=== PATIENT | female | born 2000 | race Asian ===

== ENCOUNTER 2022-10-27 14:19 | Emergency (ER) | payer OTHER ==
[~2022-10-27] VITALS: Ht 167.6 cm; Wt 68.0 kg
[2022-10-27] MEDS ORDERED: [UNRECOGNIZED DRUG - CODE] (14:29)
[2022-10-27 14:30] VITALS: BP 101/91; PULSE 74; RESP 18; TEMP 98.2; O2SAT 99
[2022-10-27] MEDS ORDERED: NACL 0.9% 1,000 ML IV ONE (14:30)
[2022-10-27 14:49] LABS: BASOPHILS % (AUTO) 0.3 % (0.0-2.0); EOSINOPHILS # (AUTO) 0.1 K/uL (0-0.4); EOSINOPHILS % (AUTO) 0.9 % (0.0-4.0); HEMATOCRIT 39.9 % (36-48); HEMOGLOBIN 13.3 g/dL (12.0-16.0); LYMPHOCYTES # (AUTO) 1.7 K/uL (2.5-16.5); LYMPHOCYTES % (AUTO) 19.4 % (20.5-51.1); MEAN CORPUSCULAR HEMOGLOBIN 30 pg (27-31); MEAN CORPUSCULAR HGB CONC 33 g/dL (33-37); MEAN CORPUSCULAR VOLUME 90.8 fL (80-94); MONOCYTES # (AUTO) 0.5 K/uL (0.8-1.0); MONOCYTES % (AUTO) 6.1 % (1.7-9.3); NEUTROPHILS # (AUTO) 6.5 K/uL (1.8-7.7); NEUTROPHILS % (AUTO) 73.3 % (42.2-75.2); PLATELET COUNT (AUTO) 361 K/uL (140-450); RED BLOOD CELL COUNT(AUTO) 4.39 MIL/uL (4.20-5.40); RED CELL DISTRIBUTION WIDTH 12.7 % (11.6-13.7); WHITE BLOOD COUNT (AUTO) 8.8 K/uL (4.5-11.0)
[2022-10-27 15:13] LABS: ALBUMIN 4.1 g/dL (3.4-5.0); ANION GAP 15.3 (8-16); CARBON DIOXIDE 24.8 mmol/L (21-32); MAGNESIUM 1.7 mg/dL (1.8-2.4); POTASSIUM 4.1 mmol/L (3.5-5.1); TOTAL BILIRUBIN 0.9 mg/dL (0.0-1.0)
[2022-10-27 15:26] LABS: ACETAMINOPHEN < 0.5 ug/ml (10-30); SALICYLATE < 2.8 mg/dL (2.8-20.0)
--- NOTE | 2022-10-27 15:55 | NUR ---
PATIENT PRESENTS TO ED WITH SIGN OF SUICIDE BY MEDICATION OVERDOSE. PT STATES SHES HAS HAD THOUGHTS OF SI FOR OVER A YEAR NOW. DENIES N/V/D; SKIN IS PINK/WARM/DRY; AAOX4 WITH EVEN AND STEADY GAIT; LUNGS CLEAR BL; HR EVEN AND REGULAR; PT DENIES ANY FEVER, CP, SOB, OR COUGH AT THIS TIME; PATIENT STATES PAIN OF 0/10 AT THIS TIME; VSS; PATIENT POSITIONED FOR COMFORT; HOB ELEVATED; BEDRAILS UP X2; BED DOWN. ER MD MADE AWARE OF PT STATUS. PMHX: DEPRESSION
--- NOTE | 2022-10-27 16:20 | NUR ---
Mother at bedside. Plan of care has been discussed with mother.
--- NOTE | 2022-10-27 16:30 | NUR ---
Posion control informed of pts status. Poison Control stated to draw labs, and hold pt for 6 hours. After 6 hours repeat lab draw and reassess.
--- NOTE | 2022-10-27 16:36 | NUR ---
Labs have been drawn pt has been placed on fluid replacement per providers orders pt was offered a meal and warm blankets. pt has been placed on the monitor.
[2022-10-27 17:29] VITALS: O2SAT 74
--- NOTE | 2022-10-27 18:00 | NUR ---
Per providers orders pt should be placed on a psych hold.
--- NOTE | 2022-10-27 18:18 | NUR ---
Pt in bed no signs of SI at this time noted. Pt is laying quiet in bed. Pt states she wants to speak with her mother. Mother brought in and at bedside with pt.
--- NOTE | 2022-10-27 18:53 | NUR ---
The patient's care was reviewed and supervised by NAHOMY ALICEA RN.
[2022-10-27 20:00] VITALS: O2SAT 74
[2022-10-27 20:59] LABS: MEAN CORPUSCULAR VOLUME 90.8 fL (80-94)
[2022-10-27 21:04] LABS: BASOPHILS % (AUTO) 0.4 % (0.0-2.0); EOSINOPHILS # (AUTO) 0.1 K/uL (0-0.4); EOSINOPHILS % (AUTO) 0.9 % (0.0-4.0); HEMATOCRIT 36.5 % (36-48); HEMOGLOBIN 12.3 g/dL (12.0-16.0); LYMPHOCYTES # (AUTO) 2.4 K/uL (2.5-16.5); MEAN CORPUSCULAR HEMOGLOBIN 31 pg (27-31); MEAN CORPUSCULAR HGB CONC 34 g/dL (33-37); MONOCYTES # (AUTO) 0.8 K/uL (0.8-1.0); MONOCYTES % (AUTO) 8.7 % (1.7-9.3); NEUTROPHILS # (AUTO) 5.9 K/uL (1.8-7.7); PLATELET COUNT (AUTO) 324 K/uL (140-450); RED BLOOD CELL COUNT(AUTO) 4.02 MIL/uL (4.20-5.40); RED CELL DISTRIBUTION WIDTH 12.7 % (11.6-13.7); WHITE BLOOD COUNT (AUTO) 9.2 K/uL (4.5-11.0)
--- NOTE | 2022-10-27 21:40 | NUR ---
Dr. Meyers examining patient.
[2022-10-27 22:17] LABS: ALBUMIN 4.2 g/dL (3.4-5.0); ANION GAP 15.8 (8-16); ASPARTATE AMINOTRANSFERASE 24 U/L (15-37); CARBON DIOXIDE 23.4 mmol/L (21-32); CHLORIDE 107 mmol/L (98-107); GFR ARICAN-AMERICAN 91 mL/min (>90); GLUCOSE 102 mg/dL (74-106); POTASSIUM 4.2 mmol/L (3.5-5.1); SODIUM SERUM 142 mmol/L (136-145); TOTAL BILIRUBIN 0.9 mg/dL (0.0-1.0); UREA NITROGEN, BLOOD 11 mg/dL (7-18)
--- NOTE | 2022-10-27 22:18 | NUR ---
Dr. Meyers speaking with pt and family
--- NOTE | 2022-10-27 22:20 | NUR ---
THIS NURSE AND DR. DUFF AT BEDSIDE TO DISCUSS TELEPYSCH RECOMMENDATIONS. AT THIS TIME MOTHER STATED " I DONT WANT MY DAUGHTER HERE, I CAN PROVIDE BETTER CARE FOR HER AT HOME WITH HER OWN DOCTOR WHO ACTUALLY KNOWS HER AND SHE HAS HER OWN THERAPIST AND THERAPIST FROM [facility]." "WHAT ARE MY RIGHTS? IF I NEED TO GET MY POUNDMASTER INVOLVED I WILL. MY DAUGHTER STAYING HERE IS COUNTER PRODUICTIVE." "MAY I SPEAK WITH WHOEVER IS IN CHARGE, WHO IS THE DIRECTOR. GET HIM OR HER ON THE PHONE NOW." CHARGE NURSE NOTIFIED.
--- NOTE | 2022-10-27 22:30 | NUR ---
TOSHIA JOHNSON CONTACTED FOR ASSISTANCE
[2022-10-27 22:34] LABS: SALICYLATE < 2.8 mg/dL (2.8-20.0)
--- NOTE | 2022-10-27 22:41 | NUR ---
TOSHIA JOHNSON ARRIVED. CHARGE NOTIFIED
--- NOTE | 2022-10-27 22:52 | NUR ---
THIS RN SPOKE AT LENGTHS WITH PT AND PT MOTHER DISCUSSING PLAN OF CARE AND OPTIONS, PT AGREEABLE TO VOLUNTARY CARE AND REQUESTING REEVALUATION IN THE MORNING. DR. DUFF MADE AWARE AND AGREEABLE.
[2022-10-27 23:30] VITALS: O2SAT 74
--- NOTE | 2022-10-28 00:13 | NUR ---
MOTHER CONTINUES TO BE BEDSIDE
[2022-10-28 02:45] VITALS: O2SAT 74
--- NOTE | 2022-10-28 03:15 | NUR ---
MOTHER CONTINUES TO BE AT BEDSIDE. AWAITING RECONSULT WITH TELEPYSCH
--- NOTE | 2022-10-28 07:17 | NUR ---
Pt report given to KAYLI DIAZ. Transfer of care at this time.
--- NOTE | 2022-10-28 07:20 | NUR ---
REPORT RECEIVED FROM SAMARA DIAZ. ASSUMED CARE AT THIS TIME
[2022-10-28 08:03] VITALS: TEMP 98.2
--- NOTE | 2022-10-28 08:06 | NUR ---
pt provided w/ breakfast. pt in view, awake and eating in bed. mom at bedside
[2022-10-28 08:30] VITALS: O2SAT 98
--- NOTE | 2022-10-28 09:33 | NUR ---
SECOND PAGE FOR TELEPSCYH WITH DR LEUNG
--- NOTE | 2022-10-28 10:00 | NUR ---
IV removed, catheter intact and site benign. Applied folded 4x4 gauze and tape to stop bleeding.
--- NOTE | 2022-10-28 10:23 | NUR ---
PT ON TELEPSYCH W/ MD LEUNG. MARANDA AT BEDSIDE Addendum: 10/28/22 at 1059 by [facility] PER MAGAN PORTER FOR D/C. JENARO MADE AWARE
--- NOTE | 2022-10-28 10:59 | NUR ---
pt provided w/ hygiene products. left at bedside
[2022-10-28 11:27] VITALS: BP 112/64; PULSE 74; RESP 17; O2SAT 98
--- NOTE | 2022-10-28 11:27 | NUR ---
Patient discharged with v/s stable. Written and verbal after care instructions given and explained. Patient verbalized understanding. Ambulatory with to car. All questions addressed prior to discharge. Advised to follow up with PMD.
--- NOTE | 2022-10-28 11:27 | NUR ---
Patient discharged with v/s stable. Written and verbal after care instructions given and explained. Patient verbalized understanding. Ambulatory with steady gait. All questions addressed prior to discharge. Advised to follow up with PMD.
== END 2022-10-28 11:26 | disposition home or self-care (01) ==
LOC: MED 14:19
DX: T39.314A Poisoning by propionic acid derivatives, undetermined, initial encounter (principal); Z88.8 Allergy status to other drugs, medicaments and biological substances; Y92.89 Other specified places as the place of occurrence of the external cause
CPT/HCPCS: 36415; 71045; 80053; 83735; 84484; 84703; 85025; 93005; 96360; 99291; G0480; G0482; J7030; Q0092